=== PATIENT | female | born 1955 | race Caucasian/White ===

== ENCOUNTER 2017-11-08 17:58 | Emergency (ER) | payer MEDICAID ==
[~2017-11-08] VITALS: Ht 167.6 cm; Wt 66.7 kg
[~2017-11-08 17:58] MED LIST: CLIN300C8 PO; HYDR-3240 PO; HYDR-3241 PO; HYDR-3245 PO; IBUP-1484 PO; LORA-445 PO; LORA-446 PO; NICO-485 TD; PANT40TA3 PO
[2017-11-08 18:09] VITALS: BP 102/61
[2017-11-08] MEDS ORDERED: PROPARACAINE OPHTH 0.5%, 15ML EACHEYE ONE (18:30)
[2017-11-08] MEDS ORDERED: FLUORESCEIN OPHTHALMIC 1 MG STRIP EACHEYE ONE (18:30)
[2017-11-08] MEDS ORDERED: PROPARACAINE OPHTH 0.5%, 15ML ONE (19:36)
[2017-11-08] MEDS ORDERED: FLUORESCEIN OPHTHALMIC 1 MG STRIP ONE (19:36)
== END 2017-11-08 20:59 | disposition home or self-care (01) ==
LOC: ED 20:30
DX: H10.021 Other mucopurulent conjunctivitis, right eye (principal); J20.9 Acute bronchitis, unspecified; F17.200 Nicotine dependence, unspecified, uncomplicated
CPT/HCPCS: 99283

== ENCOUNTER 2018-05-22 10:37 | Emergency (ER) | payer MEDICAID ==
[~2018-05-22] VITALS: Ht 167.6 cm; Wt 63.6 kg
[2018-05-22] MEDS ORDERED: PANTOPRAZOLE 80 MG in SODIUM CHLORIDE 0.9% 50 ML IVPB ONE (11:11)
[2018-05-22] MEDS ORDERED: PANTOPRAZOLE 80 MG in SODIUM CHLORIDE 0.9% 100 ML IV SCH (11:11)
[2018-05-22] MEDS ORDERED: ONDANSETRON ODT 4 MG ONE (11:25)
[2018-05-22] MEDS ORDERED: SODIUM CHLORIDE 0.9% 1,000ML IVBOLUS ONE (11:30)
[2018-05-22] MEDS ORDERED: ONDANSETRON ODT 4 MG PO ONE (11:30)
[2018-05-22 11:32] LABS: BASOPHILS % (AUTO) 0 % (0-1); EOSINOPHILS # (AUTO) 0.01 x10^3/uL (0-0.4); EOSINOPHILS % (AUTO) 0 % (1-7); LYMPHOCYTES # (AUTO) 0.36 x10^3/uL (1-3.4); LYMPHOCYTES % (AUTO) 5 % (22-44); MD NO; MEAN CORPUSCULAR HEMOGLOBIN 32.6 pg (27.0-34.8); MEAN CORPUSCULAR HGB CONC 32.8 g/dL (32.4-35.8); MEAN CORPUSCULAR VOLUME 99.3 fL (80-100); MEAN PLATELET VOLUME 6.7 fL (7.4-10.4); MONOCYTES # (AUTO) 0.43 x10^3/uL (0.2-0.8); MONOCYTES % (AUTO) 6 % (2-9); NEUTROPHILS # (AUTO) 6.24 x10^3/uL (1.8-6.8); NEUTROPHILS % (AUTO) 89 % (42-75); PLATELET COUNT 232 x10^3/uL (130-400); RED BLOOD COUNT 3.34 x10^6/uL (3.82-5.3); RED CELL DISTRIBUTION WIDTH 14.8 % (9.6-15.2)
[2018-05-22 11:38] LABS: INTERNATIONAL NORMALIZED RATIO 0.88 (0.93-1.1); PROTHROMBIN TIME 9.4 Seconds (9.6-11.5)
[2018-05-22 11:44] LABS: ALANINE AMINOTRANSFERASE 50 U/L (12-78); ANION GAP 21 mmol/L (5-15); CHLORIDE 99 mmol/L (98-107); CREATININE 0.69 mg/dL (0.55-1.02)
[2018-05-22 11:46] LABS: ALKALINE PHOSPHATASE 125 U/L (45-117); BILIRUBIN,TOTAL 0.7 mg/dL (0.2-1.0); TOTAL PROTEIN 6.6 g/dL (6.4-8.2)
[2018-05-22 12:52] VITALS: BP 120/63
[2018-05-22] MEDS ORDERED: INHALER (12:54)
[2018-05-22] MEDS ORDERED: STEROID (12:54)
[2018-05-22] MEDS ORDERED: TRAM50TA2 PO (12:54)
[2018-05-22] MEDS ORDERED: FLUO20CA19 PO (12:54)
[2018-05-22] MEDS ORDERED: DIAZEPAM 5 MG TABLET PO ONE (13:30)
[2018-05-22] MEDS ORDERED: OMNIPAQUE 350 MG/ML, 100ML BOTTLE ONE (13:34)
[2018-05-22] MEDS ORDERED: DIAZEPAM 5 MG TABLET ONE (13:37)
[2018-05-22 13:52] LABS: MICROSCOPIC AUTO
[2018-05-22 14:00] LABS: CULTURE INDICATED? NO
== END 2018-05-22 14:25 | disposition home or self-care (01) ==
LOC: ED 11:46
DX: K92.2 Gastrointestinal hemorrhage, unspecified (principal); K29.20 Alcoholic gastritis without bleeding; F32.9 Major depressive disorder, single episode, unspecified; J44.9 Chronic obstructive pulmonary disease, unspecified; F41.1 Generalized anxiety disorder; Z90.710 Acquired absence of both cervix and uterus; Z90.89 Acquired absence of other organs; Z98.890 Other specified postprocedural states
CPT/HCPCS: 36415; 74022; 74177; 80053; 81001; 83690; 85025; 85610; 86850; 86900; 93005; 96365; 99284; C9113; J7030; Q0162; Q9967; 96376

== ENCOUNTER 2018-06-07 16:41 | Emergency (ER) | payer MEDICAID ==
[~2018-06-07] VITALS: Ht 167.6 cm; Wt 62.5 kg
[~2018-06-07 16:41] MED LIST changes: +FLUO20CA19 PO; +INHALER; +STEROID; +TRAM50TA2 PO
[2018-06-07 16:43] VITALS: BP 92/52
== END 2018-06-07 20:47 | disposition home or self-care (01) ==
LOC: ED 17:45
DX: S30.0XXA Contusion of lower back and pelvis, initial encounter (principal); F10.220 Alcohol dependence with intoxication, uncomplicated; B34.9 Viral infection, unspecified; F32.9 Major depressive disorder, single episode, unspecified; J44.9 Chronic obstructive pulmonary disease, unspecified; F41.1 Generalized anxiety disorder; Z90.710 Acquired absence of both cervix and uterus; Z90.89 Acquired absence of other organs; W01.0XXA Fall on same level from slipping, tripping and stumbling without subsequent striking against object, initial encounter; Y93.89 Activity, other specified; Y92.89 Other specified places as the place of occurrence of the external cause; Y99.8 Other external cause status
CPT/HCPCS: 72220; 99283

== ENCOUNTER 2018-07-26 15:24 | Inpatient (IN) | payer MEDICAID ==
[~2018-07-26] VITALS: Ht 167.6 cm; Wt 55.1 kg
--- NOTE | 2018-07-26 15:48 | NUR ---
PT BIB EMS FROM HOME TODAY FOR BLOODY EMEISIS AND BLOODY STOOL PER PT. PT HAS NOT HAD A BM OR BLOODY EMESIS SINCE [facility] OR WITH EMS. PT REPROTS BEING A HEAVY DRINKER AND HAS COLON CA. PT REPORTS SHE HAS NEVER HAD A GI BLEED BEFORE. PT APPEARS TO HAVE SOME SYMPOTMS OF ETOH WITHDRAWAL (TREMORS, HTN). PT REPORTS SHE HAS HAD X2 EMESIS AT HOME. PT DENIES ANY RECENT TRUAMA. PT REPORTS TAKING NSAIDS ON A DAILY BASIS. 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 PT HAS FLUIDS RUNNING. AWAITING FURTHER ORDERS AT THIS TIME.
[2018-07-26] MEDS ORDERED: GLIP5TAB10 PO (16:01)
[2018-07-26] MEDS ORDERED: [UNRECOGNIZED DRUG - CODE] PO (16:01)
[2018-07-26] MEDS ORDERED: NITR0.6T4 SL (16:01)
[2018-07-26] MEDS ORDERED: LORazepam 2 MG/ML, 1ML ONE (16:27)
[2018-07-26] MEDS ORDERED: OCTREOTIDE 100MCG/ML, 1ML (0.1MG/ML) ONE (16:27)
[2018-07-26] MEDS ORDERED: THIAMINE 100 MG in SODIUM CHLORIDE 0.9% 50 ML IVPB ONE (16:30)
[2018-07-26] MEDS ORDERED: SODIUM CHLORIDE 0.9% 1,000ML IVBOLUS ONE (16:30)
[2018-07-26 16:33] LABS: BASOPHILS % (AUTO) 0 % (0-1); EOSINOPHILS % (AUTO) 0 % (1-7); LYMPHOCYTES # (AUTO) 0.19 x10^3/uL (1-3.4); LYMPHOCYTES % (AUTO) 2 % (22-44); MD NO; MEAN CORPUSCULAR HEMOGLOBIN 32.4 pg (27.0-34.8); MEAN CORPUSCULAR HGB CONC 33.5 g/dL (32.4-35.8); MEAN CORPUSCULAR VOLUME 96.9 fL (80-100); MEAN PLATELET VOLUME 7.1 fL (7.4-10.4); MONOCYTES # (AUTO) 0.59 x10^3/uL (0.2-0.8); MONOCYTES % (AUTO) 7 % (2-9); NEUTROPHILS # (AUTO) 8.41 x10^3/uL (1.8-6.8); NEUTROPHILS % (AUTO) 92 % (42-75); PLATELET COUNT 283 x10^3/uL (130-400); RED BLOOD COUNT 3.74 x10^6/uL (3.82-5.3)
[2018-07-26 16:41] LABS: INTERNATIONAL NORMALIZED RATIO 0.93 (0.93-1.1); PROTHROMBIN TIME 9.9 Seconds (9.6-11.5)
[2018-07-26 16:45] LABS: ALBUMIN 3.9 g/dL (3.4-5.0); ANION GAP 31 mmol/L (5-15); CALCIUM 8.4 mg/dL (8.5-10.1); CHLORIDE 93 mmol/L (98-107)
[2018-07-26 16:49] LABS: ALANINE AMINOTRANSFERASE 174 U/L (12-78); ALKALINE PHOSPHATASE 158 U/L (45-117); CREATININE 0.76 mg/dL (0.55-1.02); TOTAL PROTEIN 8.3 g/dL (6.4-8.2)
[2018-07-26] MEDS: LORazepam 2 MG/ML, 1ML IVPush PRN ×2 (16:51→21:12)
[2018-07-26] MEDS ORDERED: OCTREOTIDE 100MCG/ML, 1ML (0.1MG/ML) IV ONE (17:00)
[2018-07-26] MEDS ORDERED: PANTOPRAZOLE 80 MG in SODIUM CHLORIDE 0.9% 50 ML IVPB ONE (17:00)
[2018-07-26] MEDS ORDERED: PANTOPRAZOLE 80 MG in SODIUM CHLORIDE 0.9% 100 ML IV SCH (17:00)
[2018-07-26] MEDS ORDERED: SODIUM CHLORIDE FLUSH 10ML SYR IVF ONE (17:00)
--- NOTE | 2018-07-26 17:03 | NUR ---
THIAMINE, SALINE BOLUS, OCTREOTIDE PUSH GIVEN. REST OF MEDICATIONS REQUESTED FROM PHARMACY AT THIS TIME.
--- NOTE | 2018-07-26 17:21 | NUR ---
PROTONIX DRIP AND BOLUS STARTED AND GIVEN.
[2018-07-26] MEDS: OCTREOTIDE 500 MCG in SODIUM CHLORIDE 0.9% 249 ML IV PRN ×2 (17:24→21:12)
--- NOTE | 2018-07-26 17:26 | NUR ---
OCTEOTRIDE DRIP STARTED. BOYFRIEND AT BEDSIDE AT THIS TIME.
[2018-07-26] MEDS ORDERED: MAGNESIUM SULFATE PMX 2GM/50ML 50 ML IV ONE ×2 (18:00→19:30)
--- NOTE | 2018-07-26 18:05 | NUR ---
REQUESTED MAG FROM PHARMACY.
[2018-07-26 18:06] LABS: PH, VENOUS 7.148 pH (7.320-7.420)
--- NOTE | 2018-07-26 18:22 | NUR ---
PER MD JEFFERSON, OK TO STOP PROTONIX GTT FOR 1 HR WHILE RUNNING MAG R/T IV INCOMPATABLITY. STARTING MAG GTT NOW, WILL RESTART PROTONIX AFTER.
--- NOTE | 2018-07-26 18:52 | NUR ---
[facility] [place]NING WITH OCTREOTIDE DRIP AT THIS TIME. PROTONIX DRIP RESUMED.
[2018-07-26 18:53] LABS: ACETONE, SERUM Large (80mg/dL) mg/dL (Negative)
[2018-07-26] MEDS ORDERED: MORPHINE SULFATE 4 MG/ML, 1ML ONE (19:05)
[2018-07-26] MEDS: POTASSIUM CHLORIDE 20 MEQ, MAGNESIUM SULFATE 2 GM, THIAMINE 200 MG, MVI ADULT 10 ML, FO... IV SCH (19:17)
[2018-07-26] MEDS: SODIUM CHLORIDE 0.9% 1,000 ML IV SCH (19:17)
--- NOTE | 2018-07-26 19:21 | NUR ---
PT MEDICATED FOR PAIN AT THIS TIME.
[2018-07-26] MEDS ORDERED: BISACODYL 10 MG SUPP PR PRN (19:30)
[2018-07-26] MEDS: OCTREOTIDE 500 MCG in SODIUM CHLORIDE 0.9% 249 ML IV SCH (19:30)
[2018-07-26] MEDS: PANTOPRAZOLE 80 MG in SODIUM CHLORIDE 0.9% 100 ML IV SCH (19:30)
[2018-07-26] MEDS ORDERED: MORPHINE SULFATE 4 MG/ML, 1ML IVPush ONE (19:30)
[2018-07-26] MEDS ORDERED: ONDANSETRON 2MG/ML, 2ML IVPush PRN (19:30)
--- NOTE | 2018-07-26 19:46 | NUR ---
REPORT TO IMANI CRUZ
[2018-07-26 20:20] LABS: ANION GAP 27 mmol/L (5-15); CHLORIDE 97 mmol/L (98-107); CREATININE 0.79 mg/dL (0.55-1.02)
[2018-07-26 20:25] VITALS: BP 145/80
[2018-07-26] MEDS: SODIUM BICARBONATE 8.4% 150 MEQ in DEXTROSE 5% 1,000 ML IV SCH (22:44)
[2018-07-26] MEDS: NICOTINE 14MG/24 HR PATCH.TD24 TD SCH (23:44)
[2018-07-27] MEDS: SODIUM CHLORIDE 0.9% 1,000 ML IV SCH (00:55)
[2018-07-27] MEDS ORDERED: ALBUTEROL/IPRATROPIUM 2.5MG/0.5MG, 3 ML NPPB PRN (01:30)
[2018-07-27] MEDS: morphine SULFATE 10 MG/ML, 1ML IVPush PRN ×2 (01:51→10:00)
[2018-07-27 01:52] VITALS: BP 123/83
[2018-07-27 03:16] LABS: ALANINE AMINOTRANSFERASE 123 U/L (12-78); ANION GAP 21 mmol/L (5-15); CHLORIDE 97 mmol/L (98-107); CREATININE 0.76 mg/dL (0.55-1.02)
[2018-07-27 03:17] LABS: ANION GAP 20 mmol/L (5-15); CHLORIDE 97 mmol/L (98-107); CREATININE 0.76 mg/dL (0.55-1.02)
[2018-07-27 03:19] LABS: ALKALINE PHOSPHATASE 120 U/L (45-117); BILIRUBIN,TOTAL 0.7 mg/dL (0.2-1.0); TOTAL PROTEIN 6.4 g/dL (6.4-8.2)
[2018-07-27 03:21] LABS: BASOPHILS # (AUTO) 0.01 x10^3/uL (0-0.1); BASOPHILS % (AUTO) 0 % (0-1); EOSINOPHILS # (AUTO) 0.01 x10^3/uL (0-0.4); EOSINOPHILS % (AUTO) 0 % (1-7); LYMPHOCYTES # (AUTO) 0.45 x10^3/uL (1-3.4); LYMPHOCYTES % (AUTO) 8 % (22-44); MD NO; MEAN CORPUSCULAR HEMOGLOBIN 32.5 pg (27.0-34.8); MEAN CORPUSCULAR VOLUME 98.3 fL (80-100); MEAN PLATELET VOLUME 7.1 fL (7.4-10.4); MONOCYTES # (AUTO) 0.59 x10^3/uL (0.2-0.8); MONOCYTES % (AUTO) 10 % (2-9); NEUTROPHILS # (AUTO) 4.72 x10^3/uL (1.8-6.8); NEUTROPHILS % (AUTO) 82 % (42-75); PLATELET COUNT 214 x10^3/uL (130-400); RED BLOOD COUNT 3.08 x10^6/uL (3.82-5.3); RED CELL DISTRIBUTION WIDTH 16.7 % (9.6-15.2)
[2018-07-27] MEDS: OCTREOTIDE 500 MCG in SODIUM CHLORIDE 0.9% 249 ML IV SCH ×2 (04:01→16:17)
[2018-07-27] MEDS: PANTOPRAZOLE 80 MG in SODIUM CHLORIDE 0.9% 100 ML IV SCH ×2 (04:03→16:17)
[2018-07-27] MEDS: SODIUM BICARBONATE 8.4% 150 MEQ in DEXTROSE 5% 1,000 ML IV SCH (05:33)
[2018-07-27 07:47] VITALS: BP 109/70
[2018-07-27 08:14] LABS: ALANINE AMINOTRANSFERASE 106 U/L (12-78); ALBUMIN 2.8 g/dL (3.4-5.0); ANION GAP 12 mmol/L (5-15); CALCIUM 7.4 mg/dL (8.5-10.1); CHLORIDE 97 mmol/L (98-107); CREATININE 0.84 mg/dL (0.55-1.02)
[2018-07-27 08:16] LABS: ALKALINE PHOSPHATASE 109 U/L (45-117); BILIRUBIN,TOTAL 0.8 mg/dL (0.2-1.0); TOTAL PROTEIN 6.2 g/dL (6.4-8.2)
[2018-07-27] MEDS ORDERED: FLUOXETINE HCL 20 MG CAPSULE PO SCH (09:00)
[2018-07-27] MEDS: POTASSIUM CHLORIDE 20 MEQ, MAGNESIUM SULFATE 2 GM, THIAMINE 200 MG, MVI ADULT 10 ML, FO... IV SCH ×2 (09:00→19:41)
[2018-07-27] MEDS ORDERED: morphine SULFATE 10 MG/ML, 1ML IVPush PRN (12:30)
[2018-07-27] MEDS ORDERED: PROPOFOL 10 MG/ML, 20ML ONE (13:11)
[2018-07-27] MEDS ORDERED: ONDANSETRON 2MG/ML, 2ML IV PRN (14:00)
[2018-07-27] MEDS ORDERED: FENTANYL PF 100 MCG/2ML IV PRN (14:00)
[2018-07-27 14:36] VITALS: BP 106/73
[2018-07-27] MEDS: LORazepam 2 MG/ML, 1ML IVPush PRN (15:17)
[2018-07-27 20:13] VITALS: BP 121/76
[2018-07-27] MEDS: NICOTINE 14MG/24 HR PATCH.TD24 TD SCH (23:09)
[2018-07-28] MEDS: OCTREOTIDE 500 MCG in SODIUM CHLORIDE 0.9% 249 ML IV SCH (01:25)
[2018-07-28] MEDS: PANTOPRAZOLE 80 MG in SODIUM CHLORIDE 0.9% 100 ML IV SCH (01:25)
[2018-07-28 02:23] VITALS: BP 110/60
[2018-07-28 07:24] VITALS: BP 121/80
[2018-07-28 08:43] LABS: % IRON SATURATION 10 % (20-55); ANION GAP 5 mmol/L (5-15); CALCIUM 8.3 mg/dL (8.5-10.1); CHLORIDE 101 mmol/L (98-107); IRON LEVEL 22 mcg/dL (50-170); TOTAL IRON BINDING CAPACITY 228 mcg/dL (250-450)
[2018-07-28] MEDS: LORazepam 2 MG/ML, 1ML IVPush PRN ×2 (08:43→17:25)
[2018-07-28] MEDS ORDERED: POTASSIUM CHLORIDE 20 MEQ, MAGNESIUM SULFATE 2 GM, THIAMINE 200 MG, MVI ADULT 10 ML, FO... IV SCH (09:00)
[2018-07-28] MEDS ORDERED: IRON SUCROSE COMPLEX 100MG/5ML IV SCH (10:00)
[2018-07-28 14:10] VITALS: BP 108/71
[2018-07-28] MEDS ORDERED: POTASSIUM CHLORIDE 20 MEQ TAB.ER.PRT ONE (17:20)
[2018-07-28] MEDS ORDERED: POTASSIUM CHLORIDE 20 MEQ TAB.ER.PRT PO ONE (17:30)
[2018-07-28 19:47] VITALS: BP 104/65
[2018-07-28] MEDS: PANTOPROZOLE 40MG TABLET PO SCH (21:31)
[2018-07-28] MEDS: NICOTINE 14MG/24 HR PATCH.TD24 TD SCH (21:31)
[2018-07-29 01:42] VITALS: BP 119/78
[2018-07-29] MEDS: PANTOPROZOLE 40MG TABLET PO SCH (04:53)
[2018-07-29] MEDS: LORazepam 2 MG/ML, 1ML IVPush PRN (04:53)
[2018-07-29 06:46] VITALS: BP 107/71
[2018-07-29 08:07] LABS: BASOPHILS # (AUTO) 0.01 x10^3/uL (0-0.1); BASOPHILS % (AUTO) 0 % (0-1); EOSINOPHILS # (AUTO) 0.04 x10^3/uL (0-0.4); EOSINOPHILS % (AUTO) 1 % (1-7); LYMPHOCYTES # (AUTO) 0.74 x10^3/uL (1-3.4); LYMPHOCYTES % (AUTO) 23 % (22-44); MD NO; MEAN CORPUSCULAR VOLUME 97.1 fL (80-100); MEAN PLATELET VOLUME 7.6 fL (7.4-10.4); MONOCYTES # (AUTO) 0.44 x10^3/uL (0.2-0.8); MONOCYTES % (AUTO) 13 % (2-9); NEUTROPHILS # (AUTO) 2.06 x10^3/uL (1.8-6.8); NEUTROPHILS % (AUTO) 63 % (42-75); PLATELET COUNT 186 x10^3/uL (130-400); RED BLOOD COUNT 3.05 x10^6/uL (3.82-5.3); RED CELL DISTRIBUTION WIDTH 17.3 % (9.6-15.2)
[2018-07-29 08:15] LABS: ALBUMIN 2.8 g/dL (3.4-5.0); ANION GAP 7 mmol/L (5-15); CALCIUM 8.1 mg/dL (8.5-10.1); CHLORIDE 103 mmol/L (98-107)
[2018-07-29 08:18] LABS: ALANINE AMINOTRANSFERASE 90 U/L (12-78); ALKALINE PHOSPHATASE 126 U/L (45-117); BILIRUBIN,TOTAL 0.5 mg/dL (0.2-1.0); CREATININE 0.52 mg/dL (0.55-1.02); TOTAL PROTEIN 6.2 g/dL (6.4-8.2)
[2018-07-29] MEDS ORDERED: POTASSIUM CHLORIDE 40 MEQ in SODIUM CHLORIDE 0.9% 500 ML IV ONE (08:30)
[2018-07-29] MEDS ORDERED: IRON SUCROSE COMPLEX 100MG/5ML IV SCH (09:00)
[2018-07-29] MEDS ORDERED: ACETAMINOPHEN 325 MG TABLET PO PRN (10:30)
[2018-07-29] MEDS ORDERED: NICO-486 TD (12:45)
[2018-07-29] MEDS ORDERED: FERR-51 PO (12:45)
[2018-07-29] MEDS ORDERED: PANT40TA5 PO (12:45)
[2018-07-29 13:27] VITALS: BP 105/75
[2018-07-30] MEDS ORDERED: IRON SUCROSE COMPLEX 100MG/5ML IV SCH ×2 (09:00)
[2018-08-02] MEDS ORDERED: IRON SUCROSE COMPLEX 100MG/5ML IV ONE (09:00)
== END 2018-07-29 14:41 | disposition home health service (06) | DRG 640 ==
LOC: ED 16:52 → EDIP 18:12 → 4WST 20:30
PROVIDERS: ADMIT Internal Medicine; ATTEND Internal Medicine
PROC: 0DB78ZX Excision of Stomach, Pylorus, Via Natural or Artificial Opening Endoscopic, Diagnostic (ICD-10-PCS; principal; 2018-07-27 13:00)
DX: E87.2 Acidosis (principal); K22.11 Ulcer of esophagus with bleeding; K29.81 Duodenitis with bleeding; K29.01 Acute gastritis with bleeding; D62 Acute posthemorrhagic anemia; F10.239 Alcohol dependence with withdrawal, unspecified; E87.1 Hypo-osmolality and hyponatremia; E83.42 Hypomagnesemia; F17.210 Nicotine dependence, cigarettes, uncomplicated; E11.9 Type 2 diabetes mellitus without complications; J44.9 Chronic obstructive pulmonary disease, unspecified; K44.9 Diaphragmatic hernia without obstruction or gangrene; K70.10 Alcoholic hepatitis without ascites; K70.30 Alcoholic cirrhosis of liver without ascites; Z82.0 Family history of epilepsy and other diseases of the nervous system; Z83.3 Family history of diabetes mellitus; Z85.038 Personal history of other malignant neoplasm of large intestine; Z87.11 Personal history of peptic ulcer disease; Z90.710 Acquired absence of both cervix and uterus; Z88.8 Allergy status to other drugs, medicaments and biological substances
CPT/HCPCS: 36415; 36600; 99291; J7042; J7620; 80048; 80053; 80307; 82010; 82803; 83540; 83550; 83690; 83735; 85014; 85018; 85025; 85610; 86850; 86900; 88305; 88342; 93005; 94640; 96365; 96375; G0378; J1756; J2354; J2405; J2704; J3411; J3475; J3480; J7070; C9113; J2060; J2270; J7030; J7040; J7050

== ENCOUNTER 2018-08-12 05:59 | Inpatient (IN) | payer MEDICAID ==
[~2018-08-12] VITALS: Ht 167.6 cm; Wt 64.6 kg
[~2018-08-12 05:59] MED LIST changes: +FERR-51 PO; +GLIP5TAB10 PO; +NICO-486 TD; +NITR0.6T4 SL; +PANT40TA5 PO; +[UNRECOGNIZED DRUG - CODE] PO
[2018-08-12] MEDS ORDERED: LORazepam 2 MG/ML, 1ML IVPush ONE (06:30)
[2018-08-12] MEDS ORDERED: LORazepam 2 MG/ML, 1ML ONE (06:45)
[2018-08-12 07:11] LABS: BASOPHILS # (AUTO) 0.01 x10^3/uL (0-0.1); BASOPHILS % (AUTO) 0 % (0-1); EOSINOPHILS # (AUTO) 0.01 x10^3/uL (0-0.4); EOSINOPHILS % (AUTO) 0 % (1-7); LYMPHOCYTES # (AUTO) 0.47 x10^3/uL (1-3.4); LYMPHOCYTES % (AUTO) 6 % (22-44); MD NO; MEAN CORPUSCULAR HEMOGLOBIN 32.1 pg (27.0-34.8); MEAN CORPUSCULAR HGB CONC 32.6 g/dL (32.4-35.8); MEAN CORPUSCULAR VOLUME 98.4 fL (80-100); MEAN PLATELET VOLUME 7.2 fL (7.4-10.4); MONOCYTES # (AUTO) 0.28 x10^3/uL (0.2-0.8); MONOCYTES % (AUTO) 4 % (2-9); NEUTROPHILS # (AUTO) 7.15 x10^3/uL (1.8-6.8); NEUTROPHILS % (AUTO) 90 % (42-75); PLATELET COUNT 360 x10^3/uL (130-400); RED BLOOD COUNT 2.69 x10^6/uL (3.82-5.3); RED CELL DISTRIBUTION WIDTH 19.4 % (9.6-15.2)
[2018-08-12 07:23] LABS: ALBUMIN 2.7 g/dL (3.4-5.0); ANION GAP 11 mmol/L (5-15); CHLORIDE 105 mmol/L (98-107)
[2018-08-12 07:26] LABS: ALANINE AMINOTRANSFERASE 42 U/L (12-78); ALKALINE PHOSPHATASE 113 U/L (45-117); BILIRUBIN,TOTAL 0.8 mg/dL (0.2-1.0); CREATININE 0.73 mg/dL (0.55-1.02); TOTAL PROTEIN 5.9 g/dL (6.4-8.2); TROPONIN I < 0.015 ng/mL (0.000-0.045)
[2018-08-12] MEDS ORDERED: PANTOPRAZOLE 40 MG IV IVPush ONE (07:30)
--- NOTE | 2018-08-12 07:38 | NUR ---
Note undone in EDM - 08/12/18 at 0740 by TYE First contact with pt. Pt's mom at bedside. Pt watching TV and shakes head "yes" or "no" to EDPA. Pt's mom speaking to EDCA. Per pt's mom, "Her brother has a cough. He doesn't have any fever. She had a fever that started last night. I gave her acetaminophen from [place] once last night. She has a little cough and some chills. No sore throat. She has a headache." Pt and mom have masks on. NADN. All safety measures in place. Pt denies cp, sob, n/v/d, or trauma.
--- NOTE | 2018-08-12 07:40 | NUR ---
Charted on wrong pt above.
[2018-08-12] MEDS ORDERED: PANTOPRAZOLE 40 MG IV ONE (08:05)
[2018-08-12] MEDS ORDERED: THIAMINE 100MG TABLET ONE (08:05)
[2018-08-12] MEDS ORDERED: OMNIPAQUE 350 MG/ML, 100ML BOTTLE ONE (08:45)
[2018-08-12] MEDS ORDERED: THIAMINE 100MG TABLET PO SCH (09:00)
[2018-08-12] MEDS: POTASSIUM CHLORIDE 20 MEQ, MAGNESIUM SULFATE 1 GM, MVI ADULT 10 ML, FOLIC ACID 1 MG in ... IV SCH ×2 (09:00→10:41)
[2018-08-12] MEDS ORDERED: MAGNESIUM SULFATE PMX 2GM/50ML 50 ML IV ONE (11:00)
[2018-08-12] MEDS ORDERED: LORazepam 1MG TABLET PO PRN (11:00)
[2018-08-12] MEDS ORDERED: LABETALOL 5MG/ML, 20ML IVPush PRN (11:00)
[2018-08-12] MEDS ORDERED: LORazepam 2 MG/ML, 1ML IV PRN ×3 (11:00)
[2018-08-12] MEDS ORDERED: POTASSIUM CHLORIDE 40 MEQ in SODIUM CHLORIDE 0.9% 500 ML IV ONE (11:00)
--- NOTE | 2018-08-12 11:04 | NUR ---
BENAR TO KAYLA CRUZ VIA TELEPHONE
[2018-08-12 11:42] VITALS: BP 115/74
[2018-08-12] MEDS: POTASSIUM CHLORIDE 20 MEQ TAB.ER.PRT PO SCH ×3 (11:52→21:23)
[2018-08-12] MEDS: GUAIFENESIN 200 MG TABLET PO SCH ×3 (11:52→21:24)
[2018-08-12] MEDS ORDERED: MAGNESIUM SULFATE 6 GM in SODIUM CHLORIDE 0.9% 150 ML IV ONE (12:00)
[2018-08-12] MEDS: methylPREDNISolone SOD SUCC 125 MG/2 ML IVPush SCH ×2 (12:37→19:08)
[2018-08-12] MEDS: ENOXAPARIN 40 MG/0.4 ML SQ SCH (12:37)
[2018-08-12] MEDS: LORazepam 2 MG/ML, 1ML IV PRN ×2 (12:37→16:43)
[2018-08-12] MEDS: NICOTINE 21 MG/24 HR PATCH.TD24 TD SCH (12:38)
[2018-08-12] MEDS: ACETAMINOPHEN 325 MG TABLET PO PRN (12:48)
[2018-08-12] MEDS ORDERED: MAGNESIUM SULFATE 6 GM in SODIUM CHLORIDE 0.9% 250 ML IV ONE (13:30)
[2018-08-12 13:38] VITALS: BP 100/63
[2018-08-12] MEDS ORDERED: ALBUTEROL/IPRATROPIUM 2.5MG/0.5MG, 3 ML NPPB PRN (14:00)
[2018-08-12 14:11] VITALS: BP 100/63
[2018-08-12] MEDS ORDERED: SODIUM CHLORIDE 0.9% 1,000 ML IV SCH (16:00)
[2018-08-12] MEDS: PANTOPROZOLE 40MG TABLET PO SCH (16:35)
[2018-08-12 17:43] LABS: OCCULT BLOOD POSITIVE (NEGATIVE)
[2018-08-12 18:14] LABS: % IRON SATURATION 14 % (20-55); ANION GAP 8 mmol/L (5-15); CALCIUM 7.2 mg/dL (8.5-10.1); CHLORIDE 108 mmol/L (98-107); CREATININE 0.76 mg/dL (0.55-1.02); IRON LEVEL 35 mcg/dL (50-170); TOTAL IRON BINDING CAPACITY 256 mcg/dL (250-450)
[2018-08-12 18:42] LABS: FOLATE LEVEL > 20.0 ng/mL (3.1-17.5)
[2018-08-12 20:31] VITALS: BP 126/73
[2018-08-12] MEDS: THIAMINE 100MG TABLET PO SCH (21:23)
[2018-08-12] MEDS: LORazepam 0.5MG TABLET PO PRN (21:23)
[2018-08-12] MEDS: FERROUS SULFATE 325 MG TABLET PO SCH (21:23)
[2018-08-13] VITALS (8 sets, daily range): BP systolic 105–129; BP diastolic 67–80
[2018-08-13] MEDS: methylPREDNISolone SOD SUCC 125 MG/2 ML IVPush SCH ×3 (00:01→11:07)
[2018-08-13] MEDS: LORazepam 1MG TABLET PO PRN ×4 (00:02→14:57)
[2018-08-13 04:43] LABS: CHLORIDE 108 mmol/L (98-107)
[2018-08-13 04:57] LABS: ALANINE AMINOTRANSFERASE 35 U/L (12-78); ALBUMIN 2.6 g/dL (3.4-5.0); ALKALINE PHOSPHATASE 109 U/L (45-117); ANION GAP 7 mmol/L (5-15); BILIRUBIN,TOTAL 0.4 mg/dL (0.2-1.0); CALCIUM 7.4 mg/dL (8.5-10.1); CREATININE 0.56 mg/dL (0.55-1.02); TOTAL PROTEIN 5.6 g/dL (6.4-8.2)
[2018-08-13] MEDS: GUAIFENESIN 200 MG TABLET PO SCH ×4 (05:11→20:36)
[2018-08-13] MEDS: POTASSIUM CHLORIDE 20 MEQ TAB.ER.PRT PO SCH ×4 (05:11→20:36)
[2018-08-13] MEDS: PANTOPROZOLE 40MG TABLET PO SCH ×2 (05:11→14:57)
[2018-08-13] MEDS: FLUOXETINE HCL 20 MG CAPSULE PO SCH (09:35)
[2018-08-13] MEDS: THIAMINE 100MG TABLET PO SCH ×2 (09:35→20:36)
[2018-08-13] MEDS: FOLIC ACID 1 MG TABLET PO SCH (09:35)
[2018-08-13] MEDS: FERROUS SULFATE 325 MG TABLET PO SCH ×2 (09:35→20:36)
[2018-08-13] MEDS: MULTIVITAMIN 1 TABLET PO SCH (09:35)
[2018-08-13] MEDS: ENOXAPARIN 40 MG/0.4 ML SQ SCH (11:06)
[2018-08-13] MEDS: NICOTINE 21 MG/24 HR PATCH.TD24 TD SCH (11:06)
[2018-08-13] MEDS ORDERED: SODIUM PHOSPHATE 10 MMOL in SODIUM CHLORIDE 0.9% 500 ML IV ONE (14:30)
[2018-08-13] MEDS: CHLORDIAZEPOXIDE 10 MG CAPSULE PO PRN ×2 (15:04→20:36)
[2018-08-13 18:05] LABS: BASOPHILS # (AUTO) 0.03 x10^3/uL (0-0.1); BASOPHILS % (AUTO) 0 % (0-1); EOSINOPHILS % (AUTO) 0 % (1-7); LYMPHOCYTES # (AUTO) 0.78 x10^3/uL (1-3.4); LYMPHOCYTES % (AUTO) 11 % (22-44); MD NO; MEAN CORPUSCULAR HEMOGLOBIN 33.4 pg (27.0-34.8); MEAN CORPUSCULAR HGB CONC 33.2 g/dL (32.4-35.8); MEAN CORPUSCULAR VOLUME 100.6 fL (80-100); MEAN PLATELET VOLUME 7.5 fL (7.4-10.4); MONOCYTES # (AUTO) 0.38 x10^3/uL (0.2-0.8); MONOCYTES % (AUTO) 6 % (2-9); NEUTROPHILS # (AUTO) 5.72 x10^3/uL (1.8-6.8); NEUTROPHILS % (AUTO) 83 % (42-75); PLATELET COUNT 282 x10^3/uL (130-400); RED CELL DISTRIBUTION WIDTH 20.1 % (9.6-15.2)
[2018-08-14 00:15] VITALS: BP 129/79
[2018-08-14] MEDS: CHLORDIAZEPOXIDE 10 MG CAPSULE PO PRN ×2 (04:31→12:34)
[2018-08-14] MEDS: POTASSIUM CHLORIDE 20 MEQ TAB.ER.PRT PO SCH ×4 (05:26→21:15)
[2018-08-14] MEDS: PANTOPROZOLE 40MG TABLET PO SCH ×2 (05:27→16:55)
[2018-08-14] MEDS: GUAIFENESIN 200 MG TABLET PO SCH ×4 (05:27→21:15)
[2018-08-14 05:37] LABS: BASOPHILS # (AUTO) 0.03 x10^3/uL (0-0.1); BASOPHILS % (AUTO) 0 % (0-1); EOSINOPHILS # (AUTO) 0.03 x10^3/uL (0-0.4); EOSINOPHILS % (AUTO) 1 % (1-7); LYMPHOCYTES # (AUTO) 1.07 x10^3/uL (1-3.4); LYMPHOCYTES % (AUTO) 14 % (22-44); MD NO; MEAN CORPUSCULAR HEMOGLOBIN 34.1 pg (27.0-34.8); MEAN CORPUSCULAR HGB CONC 33.8 g/dL (32.4-35.8); MEAN CORPUSCULAR VOLUME 100.8 fL (80-100); MEAN PLATELET VOLUME 7.4 fL (7.4-10.4); MONOCYTES # (AUTO) 0.25 x10^3/uL (0.2-0.8); MONOCYTES % (AUTO) 3 % (2-9); NEUTROPHILS # (AUTO) 6.08 x10^3/uL (1.8-6.8); NEUTROPHILS % (AUTO) 81 % (42-75); PLATELET COUNT 271 x10^3/uL (130-400); RED BLOOD COUNT 2.57 x10^6/uL (3.82-5.3); RED CELL DISTRIBUTION WIDTH 20.4 % (9.6-15.2)
[2018-08-14 05:49] LABS: ALBUMIN 2.7 g/dL (3.4-5.0); ANION GAP 5 mmol/L (5-15); CALCIUM 8.1 mg/dL (8.5-10.1); CHLORIDE 106 mmol/L (98-107)
[2018-08-14 05:53] LABS: ALANINE AMINOTRANSFERASE 57 U/L (12-78); ALKALINE PHOSPHATASE 120 U/L (45-117); BILIRUBIN,TOTAL 0.5 mg/dL (0.2-1.0); CREATININE 0.63 mg/dL (0.55-1.02); TOTAL PROTEIN 5.9 g/dL (6.4-8.2)
[2018-08-14 08:00] VITALS: BP 128/81
[2018-08-14] MEDS ORDERED: DEXTROSE 4 GM TAB.CHEW PO PRN (08:00)
[2018-08-14] MEDS ORDERED: DEXTROSE 50%, 50ML SYRINGE IVPush PRN (08:00)
[2018-08-14] MEDS ORDERED: GLUCAGON 1 MG IM PRN (08:00)
[2018-08-14] MEDS ORDERED: POTASSIUM PHOSPHATE 44 MEQ in SODIUM CHLORIDE 0.9% 500 ML IV ONE (08:00)
[2018-08-14] MEDS: SODIUM CHLORIDE FLUSH 10ML SYR IVF SCH ×2 (09:00→21:00)
[2018-08-14] MEDS: FERROUS SULFATE 325 MG TABLET PO SCH ×2 (09:00→21:15)
[2018-08-14] MEDS: THIAMINE 100MG TABLET PO SCH ×2 (09:22→21:15)
[2018-08-14] MEDS: NICOTINE 21 MG/24 HR PATCH.TD24 TD SCH (09:22)
[2018-08-14] MEDS: FOLIC ACID 1 MG TABLET PO SCH (09:22)
[2018-08-14] MEDS: FLUOXETINE HCL 20 MG CAPSULE PO SCH (09:23)
[2018-08-14] MEDS: MULTIVITAMIN 1 TABLET PO SCH (09:23)
[2018-08-14] MEDS: ENOXAPARIN 40 MG/0.4 ML SQ SCH (12:34)
[2018-08-14 14:00] VITALS: BP 103/68
[2018-08-14 19:17] VITALS: BP 106/58
[2018-08-14] MEDS ORDERED: MAGNESIUM OXIDE 400 MG TABLET PO SCH (21:00)
[2018-08-15] VITALS (7 sets, daily range): BP systolic 89–122; BP diastolic 59–80
[2018-08-15] MEDS: LORazepam 1MG TABLET PO PRN ×2 (01:54→06:04)
[2018-08-15 05:03] LABS: BASOPHILS # (AUTO) 0.02 x10^3/uL (0-0.1); BASOPHILS % (AUTO) 0 % (0-1); EOSINOPHILS # (AUTO) 0.02 x10^3/uL (0-0.4); EOSINOPHILS % (AUTO) 0 % (1-7); LYMPHOCYTES # (AUTO) 1.23 x10^3/uL (1-3.4); LYMPHOCYTES % (AUTO) 23 % (22-44); MD NO; MEAN CORPUSCULAR HGB CONC 33.5 g/dL (32.4-35.8); MEAN CORPUSCULAR VOLUME 101.5 fL (80-100); MEAN PLATELET VOLUME 7.7 fL (7.4-10.4); MONOCYTES # (AUTO) 0.51 x10^3/uL (0.2-0.8); MONOCYTES % (AUTO) 9 % (2-9); NEUTROPHILS # (AUTO) 3.69 x10^3/uL (1.8-6.8); NEUTROPHILS % (AUTO) 67 % (42-75); PLATELET COUNT 266 x10^3/uL (130-400); RED BLOOD COUNT 2.87 x10^6/uL (3.82-5.3); RED CELL DISTRIBUTION WIDTH 20.3 % (9.6-15.2)
[2018-08-15 05:12] LABS: ALBUMIN 2.7 g/dL (3.4-5.0); ANION GAP 4 mmol/L (5-15); CALCIUM 8.1 mg/dL (8.5-10.1); CHLORIDE 107 mmol/L (98-107)
[2018-08-15 05:18] LABS: ALANINE AMINOTRANSFERASE 70 U/L (12-78); ALKALINE PHOSPHATASE 115 U/L (45-117); BILIRUBIN,TOTAL 0.4 mg/dL (0.2-1.0); CREATININE 0.64 mg/dL (0.55-1.02); TOTAL PROTEIN 6.4 g/dL (6.4-8.2)
[2018-08-15] MEDS: PANTOPROZOLE 40MG TABLET PO SCH ×2 (06:03→17:18)
[2018-08-15] MEDS: POTASSIUM CHLORIDE 20 MEQ TAB.ER.PRT PO SCH (06:03)
[2018-08-15] MEDS: GUAIFENESIN 200 MG TABLET PO SCH ×4 (06:03→20:39)
[2018-08-15] MEDS ORDERED: SODIUM POLYSTYRENE SULFONATE ORAL SUSP PO ONE (07:30)
[2018-08-15] MEDS: SODIUM CHLORIDE FLUSH 10ML SYR IVF SCH ×2 (07:36→20:39)
[2018-08-15] MEDS: ACETAMINOPHEN 325 MG TABLET PO PRN (07:36)
[2018-08-15] MEDS: THIAMINE 100MG TABLET PO SCH ×2 (09:23→20:39)
[2018-08-15] MEDS: FLUOXETINE HCL 20 MG CAPSULE PO SCH (09:24)
[2018-08-15] MEDS: MULTIVITAMIN 1 TABLET PO SCH (09:24)
[2018-08-15] MEDS: FOLIC ACID 1 MG TABLET PO SCH (09:24)
[2018-08-15] MEDS: FERROUS SULFATE 325 MG TABLET PO SCH ×2 (09:24→20:39)
[2018-08-15 11:49] LABS: CHLORIDE 110 mmol/L (98-107)
[2018-08-15 11:55] LABS: ANION GAP 8 mmol/L (5-15); CALCIUM 8.5 mg/dL (8.5-10.1); CREATININE 0.91 mg/dL (0.55-1.02)
[2018-08-15] MEDS: NICOTINE 21 MG/24 HR PATCH.TD24 TD SCH (12:20)
[2018-08-15] MEDS: ENOXAPARIN 40 MG/0.4 ML SQ SCH (12:20)
[2018-08-15] MEDS: MIDODRINE 5 MG TABLET PO SCH (20:39)
[2018-08-16 00:03] VITALS: BP 109/69
[2018-08-16] MEDS: LORazepam 0.5MG TABLET PO PRN (01:07)
[2018-08-16] MEDS: GUAIFENESIN 200 MG TABLET PO SCH ×2 (06:21→09:33)
[2018-08-16] MEDS: PANTOPROZOLE 40MG TABLET PO SCH (06:22)
[2018-08-16 06:54] LABS: ALBUMIN 2.9 g/dL (3.4-5.0); ANION GAP 7 mmol/L (5-15); CALCIUM 8.6 mg/dL (8.5-10.1); CHLORIDE 102 mmol/L (98-107)
[2018-08-16 06:55] LABS: BASOPHILS # (AUTO) 0.02 x10^3/uL (0-0.1); BASOPHILS % (AUTO) 0 % (0-1); EOSINOPHILS # (AUTO) 0.05 x10^3/uL (0-0.4); EOSINOPHILS % (AUTO) 1 % (1-7); LYMPHOCYTES # (AUTO) 1.57 x10^3/uL (1-3.4); LYMPHOCYTES % (AUTO) 25 % (22-44); MD NO; MEAN CORPUSCULAR HGB CONC 33.6 g/dL (32.4-35.8); MEAN CORPUSCULAR VOLUME 101.2 fL (80-100); MEAN PLATELET VOLUME 7.8 fL (7.4-10.4); MONOCYTES # (AUTO) 0.81 x10^3/uL (0.2-0.8); MONOCYTES % (AUTO) 13 % (2-9); NEUTROPHILS # (AUTO) 3.98 x10^3/uL (1.8-6.8); NEUTROPHILS % (AUTO) 62 % (42-75); PLATELET COUNT 303 x10^3/uL (130-400); RED BLOOD COUNT 2.95 x10^6/uL (3.82-5.3); RED CELL DISTRIBUTION WIDTH 20.3 % (9.6-15.2)
[2018-08-16 06:58] LABS: ALANINE AMINOTRANSFERASE 101 U/L (12-78); ALKALINE PHOSPHATASE 139 U/L (45-117); BILIRUBIN,TOTAL 0.2 mg/dL (0.2-1.0); CREATININE 0.76 mg/dL (0.55-1.02); TOTAL PROTEIN 6.4 g/dL (6.4-8.2)
[2018-08-16 08:00] VITALS: BP 103/67
[2018-08-16] MEDS: FLUOXETINE HCL 20 MG CAPSULE PO SCH (09:32)
[2018-08-16] MEDS: MIDODRINE 5 MG TABLET PO SCH (09:32)
[2018-08-16] MEDS: MULTIVITAMIN 1 TABLET PO SCH (09:33)
[2018-08-16] MEDS: THIAMINE 100MG TABLET PO SCH (09:33)
[2018-08-16] MEDS: FOLIC ACID 1 MG TABLET PO SCH (09:33)
[2018-08-16] MEDS: FERROUS SULFATE 325 MG TABLET PO SCH (09:33)
[2018-08-16] MEDS: SODIUM CHLORIDE FLUSH 10ML SYR IVF SCH (09:34)
[2018-08-16] MEDS: ENOXAPARIN 40 MG/0.4 ML SQ SCH (12:00)
[2018-08-16] MEDS: NICOTINE 21 MG/24 HR PATCH.TD24 TD SCH (12:00)
[2018-08-16] MEDS ORDERED: PRED20TA PO (12:49)
== END 2018-08-16 16:20 | disposition home or self-care (01) | DRG 191 ==
LOC: ED 07:33 → EDIP 09:43 → 4WST 11:23
PROVIDERS: ADMIT Internal Medicine; ATTEND Internal Medicine
DX: J44.1 Chronic obstructive pulmonary disease with (acute) exacerbation (principal); E44.0 Moderate protein-calorie malnutrition; F10.239 Alcohol dependence with withdrawal, unspecified; D64.9 Anemia, unspecified; Z88.8 Allergy status to other drugs, medicaments and biological substances; E83.39 Other disorders of phosphorus metabolism; E83.42 Hypomagnesemia; E87.6 Hypokalemia; Y90.9 Presence of alcohol in blood, level not specified; F41.1 Generalized anxiety disorder; G89.29 Other chronic pain; W18.39XA Other fall on same level, initial encounter; Y93.89 Activity, other specified; Y92.89 Other specified places as the place of occurrence of the external cause; Y99.8 Other external cause status; F17.200 Nicotine dependence, unspecified, uncomplicated; Z71.6 Tobacco abuse counseling; Z87.11 Personal history of peptic ulcer disease; Z87.440 Personal history of urinary (tract) infections; Z90.710 Acquired absence of both cervix and uterus; Z91.14 Patient's other noncompliance with medication regimen; F32.9 Major depressive disorder, single episode, unspecified; Z68.23 Body mass index [BMI] 23.0-23.9, adult; Z71.41 Alcohol abuse counseling and surveillance of alcoholic
CPT/HCPCS: 36415; J7620; 71045; 71275; 80048; 80053; 80307; 82272; 82607; 82728; 82746; 82962; 83540; 83550; 83735; 84100; 84484; 85025; 85379; 93005; 93306; 93880; 93970; G0378; J1650; J3475; J3480; Q9967; C9113; J2060; J2930; J7030; J7040; J7050; J7512

== ENCOUNTER 2018-10-05 18:43 | Emergency (ER) | payer MEDICAID ==
[~2018-10-05] VITALS: Ht 152.4 cm; Wt 65.0 kg
[~2018-10-05 18:43] MED LIST changes: +PRED20TA PO
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
[2018-10-05 19:31] LABS: BASOPHILS # (AUTO) 0.07 x10^3/uL (0-0.1); BASOPHILS % (AUTO) 1 % (0-1); EOSINOPHILS # (AUTO) 0.06 x10^3/uL (0-0.4); EOSINOPHILS % (AUTO) 1 % (1-7); LYMPHOCYTES % (AUTO) 19 % (22-44); MD NO; MEAN CORPUSCULAR HEMOGLOBIN 33.5 pg (27.0-34.8); MEAN CORPUSCULAR HGB CONC 33.4 g/dL (32.4-35.8); MEAN CORPUSCULAR VOLUME 100.1 fL (80-100); MEAN PLATELET VOLUME 6.8 fL (7.4-10.4); MONOCYTES # (AUTO) 0.66 x10^3/uL (0.2-0.8); MONOCYTES % (AUTO) 13 % (2-9); NEUTROPHILS # (AUTO) 3.42 x10^3/uL (1.8-6.8); NEUTROPHILS % (AUTO) 66 % (42-75); PLATELET COUNT 527 x10^3/uL (130-400); RED BLOOD COUNT 2.69 x10^6/uL (3.82-5.3); RED CELL DISTRIBUTION WIDTH 20.2 % (9.6-15.2)
--- NOTE | 2018-10-05 19:39 | NUR ---
ALL TESTING COMPLETE, PATIENT CONTINUES TO DENY COMPLAINTS, REMAINS QUITE INTOXICATED. GIVEN WATER. TOLERATED W/OUT DIFFICULTY. REMAINS ON MONITOR W/ STABLE VS. CALL HANDY IN HAND/SIDE RAILS UP. UPDATED ON ESTIMATED POC
[2018-10-05 19:43] LABS: ANION GAP 7 mmol/L (5-15); CALCIUM 7.8 mg/dL (8.5-10.1); CHLORIDE 115 mmol/L (98-107)
[2018-10-05 19:44] LABS: ALANINE AMINOTRANSFERASE 46 U/L (12-78); ALBUMIN 2.6 g/dL (3.4-5.0)
[2018-10-05 19:48] LABS: ALKALINE PHOSPHATASE 125 U/L (45-117); BILIRUBIN,TOTAL 0.1 mg/dL (0.2-1.0); TOTAL PROTEIN 6.2 g/dL (6.4-8.2)
--- NOTE | 2018-10-05 20:40 | NUR ---
Patient soundly sleeping on gurney on hall monitor w/ call [place] in hand. Requiring 2l nc as patient pox to 84% on ra while sleeping. Woken up to encourage water. Denies complaints. updated on poc
--- NOTE | 2018-10-05 20:58 | NUR ---
Report to Ollie CRUZ
--- NOTE | 2018-10-05 21:01 | NUR ---
report of pt from ANTHONY Barcenas, and assuming care of pt.
--- NOTE | 2018-10-05 22:29 | NUR ---
PT AAO X 4 AND ABLE TO AMBULATE TO REGISTRATION DESK WITH STEADY GAIT. PT D/C WITH D/C SUMMARY AND SCRIPTS. ALL QUESTIONS ANSWERED. PT PROVIDED A TAXI VOUCHER TO HOMELESS ALF PER REQUEST. PT VSS AND UPDATED IN EMR. PT DENIES ANY OTHER NEEDS PERTAINING TO THIS VISIT.
[2018-10-05 22:32] VITALS: BP 111/57
== END 2018-10-05 22:34 | disposition home or self-care (01) ==
LOC: ED 21:35
DX: F10.220 Alcohol dependence with intoxication, uncomplicated (principal); M25.562 Pain in left knee; J44.9 Chronic obstructive pulmonary disease, unspecified
CPT/HCPCS: 36415; 71046; 80053; 80307; 83880; 85025; 93005; 99284

== ENCOUNTER 2018-10-10 18:40 | Emergency (ER) | payer MEDICAID ==
[~2018-10-10] VITALS: Ht 167.6 cm; Wt 65.0 kg
[2018-10-10 18:45] VITALS: BP 116/76
--- NOTE | 2018-10-10 19:00 | NUR ---
PT HERE FOR BILATERAL LEG SWELLING AND PAIN. PT REPORTS STARTED TODAY. NON PITTING EDEMA AND HAS REDNESS TO FEET. PT REPROTS PAIN WITH PALPATION. PT CONNECTED TO MONITORS AND CALL LIGHT IN REACH. VSS
[2018-10-10 19:14] LABS: BASOPHILS # (AUTO) 0.16 x10^3/uL (0-0.1); BASOPHILS % (AUTO) 3 % (0-1); EOSINOPHILS # (AUTO) 0.06 x10^3/uL (0-0.4); EOSINOPHILS % (AUTO) 1 % (1-7); LYMPHOCYTES # (AUTO) 1.54 x10^3/uL (1-3.4); LYMPHOCYTES % (AUTO) 26 % (22-44); MD NO; MEAN CORPUSCULAR HGB CONC 33.7 g/dL (32.4-35.8); MEAN CORPUSCULAR VOLUME 98.1 fL (80-100); MEAN PLATELET VOLUME 6.1 fL (7.4-10.4); MONOCYTES # (AUTO) 0.59 x10^3/uL (0.2-0.8); MONOCYTES % (AUTO) 10 % (2-9); NEUTROPHILS # (AUTO) 3.63 x10^3/uL (1.8-6.8); NEUTROPHILS % (AUTO) 61 % (42-75); PLATELET COUNT 556 x10^3/uL (130-400); RED BLOOD COUNT 3.02 x10^6/uL (3.82-5.3); RED CELL DISTRIBUTION WIDTH 19.7 % (9.6-15.2)
[2018-10-10 19:24] LABS: ALBUMIN 2.9 g/dL (3.4-5.0); ANION GAP 6 mmol/L (5-15); CALCIUM 7.7 mg/dL (8.5-10.1); CHLORIDE 113 mmol/L (98-107); CREATININE 0.82 mg/dL (0.55-1.02)
[2018-10-10 19:27] LABS: TROPONIN I < 0.015 ng/mL (0.000-0.045)
[2018-10-10] MEDS ORDERED: POTASSIUM CHLORIDE 20 MEQ TAB.ER.PRT PO ONE (20:00)
[2018-10-10] MEDS ORDERED: POTASSIUM CHLORIDE 20 MEQ TAB.ER.PRT ONE (20:22)
--- NOTE | 2018-10-10 20:30 | NUR ---
Float RN: Pt ambulated to restroom without assistance with steady gait, back to [facility], medicated per emar, given crackers and water. CLIP, both siderails up, pt denies any needs/concerns
--- NOTE | 2018-10-10 22:52 | NUR ---
Patient/Caregiver given discharge instructions and they have confirmed that they understand the instructions. Patient ambulatory with steady gait.
== END 2018-10-10 22:54 | disposition home or self-care (01) ==
LOC: ED 22:12
DX: R60.0 Localized edema (principal); F10.120 Alcohol abuse with intoxication, uncomplicated; M19.90 Unspecified osteoarthritis, unspecified site; F41.1 Generalized anxiety disorder; J44.9 Chronic obstructive pulmonary disease, unspecified; I50.9 Heart failure, unspecified; F32.9 Major depressive disorder, single episode, unspecified; Z59.0 Homelessness; Z90.710 Acquired absence of both cervix and uterus
CPT/HCPCS: 36415; 71045; 80048; 80307; 82040; 83880; 84484; 85025; 93005; 99284

== ENCOUNTER 2018-10-13 09:46 | Emergency (ER) | payer MEDICAID ==
--- NOTE | 2018-10-13 09:51 | NUR ---
PT EXTREMELY RUDE TO THIS RN AND ADMINISTRATION. PT EDUCATED REGARDING NOT SPEAKING AGGRESSIVELY TO STAFF. 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 GO OUT!" NO ACUTE DISTRESS NOTED.
--- NOTE | 2018-10-13 09:52 | NUR ---
63 Y/O FEMALE BIB AMBULANCE WITH C/O ETOH. PT UNCOOPERATIVE WITH HISTORY. PT STATES "YOU KNOW WHY I'M HERE. I'VE BEEN HERE BEFORE. 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 YOU SHOULD KNOW!!" PT PLACED ON CONT PULSE OX,NIBP. PT WAS AMBULATORY WITH STEADY GAIT USING WALKER WHEN ARRIVED BY EMS. PER REPORT, PT DRINKS A PINT A DAY. PT STATES SHE HAS ALREADY DRANK TODAY. NO C/O N/V/D, TRAUMA, SYNCOPE, CP, SOB. PER REPORT PT LOWERED HERSELF TO THE SIDEWALK TO SLEEP IN FRONT OF THE HALF-WAY. EMS WAS CALLED.
--- NOTE | 2018-10-13 10:26 | NUR ---
PT TO IMAGING
[2018-10-13 10:58] VITALS: BP 127/88
--- NOTE | 2018-10-13 10:58 | NUR ---
PT STILL REFUSES ASSESSMENT FROM RN
--- NOTE | 2018-10-13 10:58 | NUR ---
PT RESTING ON GURWOLSEY. NO ACUTE DISTRESS NOTED.
[2018-10-13 11:26] LABS: BASOPHILS # (AUTO) 0.03 x10^3/uL (0-0.1); BASOPHILS % (AUTO) 1 % (0-1); EOSINOPHILS % (AUTO) 2 % (1-7); LYMPHOCYTES # (AUTO) 1.04 x10^3/uL (1-3.4); LYMPHOCYTES % (AUTO) 19 % (22-44); MD NO; MEAN CORPUSCULAR HEMOGLOBIN 32.6 pg (27.0-34.8); MEAN CORPUSCULAR HGB CONC 33.2 g/dL (32.4-35.8); MEAN CORPUSCULAR VOLUME 98.2 fL (80-100); MEAN PLATELET VOLUME 6.4 fL (7.4-10.4); MONOCYTES # (AUTO) 0.36 x10^3/uL (0.2-0.8); MONOCYTES % (AUTO) 7 % (2-9); NEUTROPHILS # (AUTO) 3.83 x10^3/uL (1.8-6.8); NEUTROPHILS % (AUTO) 71 % (42-75); PLATELET COUNT 432 x10^3/uL (130-400); RED BLOOD COUNT 3.24 x10^6/uL (3.82-5.3); RED CELL DISTRIBUTION WIDTH 19.1 % (9.6-15.2)
[2018-10-13 11:36] LABS: ALANINE AMINOTRANSFERASE 56 U/L (12-78); ANION GAP 9 mmol/L (5-15); CHLORIDE 111 mmol/L (98-107); CREATININE 0.59 mg/dL (0.55-1.02)
[2018-10-13 11:38] LABS: ALKALINE PHOSPHATASE 127 U/L (45-117); BILIRUBIN,TOTAL 0.3 mg/dL (0.2-1.0); TOTAL PROTEIN 6.9 g/dL (6.4-8.2)
--- NOTE | 2018-10-13 12:12 | NUR ---
Patient/Caregiver given discharge instructions and they have confirmed that they understand the instructions. Patient ambulatory with steady gait USING HER PERSONAL WALKER. PT LEFT WITH ALL PERSONAL BELONGINGS.
== END 2018-10-13 12:15 | disposition home or self-care (01) ==
LOC: ED 11:07
DX: G89.29 Other chronic pain (principal); R10.32 Left lower quadrant pain; J44.9 Chronic obstructive pulmonary disease, unspecified
CPT/HCPCS: 36415; 74176; 80053; 85025; 99283; 99284

== ENCOUNTER 2019-07-12 16:38 | Emergency (ER) | payer MEDICAID ==
[~2019-07-12 16:38] MED LIST changes: -IBUP-1484 PO; +IBUP-1902 PO
--- NOTE | 2019-07-12 16:50 | NUR ---
PT BIB [facility] FROM HOME FOR C/O HEADACHE & FEELING "SICK" SINCE 06/22/2010. PT HAS HX OF MIGRAINES. PER EMS, PT DRANK A PINT OF LIQUOR TODAY AND DIDN'T DRINK MUCH WATER. VS PER EMS: 117/71, 96% ON RA, HR 75. EMS STATED PT STARTED YELLING EN ROUTE, "WHY AREN'T YOU DOING ANYTHING ABOUT MY BRONCHITIS?" UPON ARRIVAL TO ED, PT C/O ROOM BEING "FILTHY," STATED SHE DIDN'T WANT TO STAY HERE. THIS RN OFFERED TO HAVE HOUSEKEEPING CLEAN ROOM AGAIN IMMEDIATELY AND TOLD PT THAT AN MD WOULD BE IN TO SEE HER IMMEDIATELY, BUT PT WAS ADAMANT ABOUT LEAVING AND WALKED OUT OF ED WITH STEADY GAIT. REFUSED TO SIGN AMA FORM.
== END 2019-07-12 18:32 | disposition left against medical advice (07) ==
LOC: ED 18:26
DX: R51 Headache (principal); Z53.21 Procedure and treatment not carried out due to patient leaving prior to being seen by health care provider